=== PATIENT | male | born 1990 | race African-American/Black ===

== ENCOUNTER 2020-07-10 11:40 | Emergency (ER) | payer MEDICAID ==
[~2020-07-10] VITALS: Ht 180.3 cm; Wt 145.1 kg
[2020-07-10 11:47] VITALS: BP 162/101
[2020-07-10] MEDS ORDERED: Augmentin 875mg Tab ORAL ONE (12:45)
[2020-07-10] MEDS ORDERED: AUGMENTIN 875-1 EAC1 ORAL (12:45)
[2020-07-10] MEDS ORDERED: NORCO 5-325 TA1 EAC1 ORAL (12:45)
[2020-07-10 13:07] VITALS: BP 145/82
--- NOTE | 2020-07-12 14:13 | Emergency Room Report ---
History of Present Illness General Chief Complaint: Sore Throat Source: Patient Present Illness HPI Patient is a 29-year-old male who presents after increased sore throat. Reports having pain to the left ear as well as increased pain to the back of his throat. Denies any voice changes. Had previous history of peritonsillar abscess drainage in the past. Onset of symptoms approximately 4 days ago. Gradually worsening symptoms. Denies any vomiting or fever. Denies any cough. Allergies: Coded Allergies: No Known Allergies (Unverified , 07/10/20) COVID-19 Screening Contact w/high risk pt: No Experienced COVID-19 symptoms?: Yes COVID-19 Testing performed MACHINING DEPARTMENT SUPERVISOR: No Patient History Past Medical History: see triage record Reviewed Nursing Documentation: PMH: Agreed; PSxH: Agreed Nursing Documentation-PMH Past Medical History: No Stated History Hx Cardiac Problems: No Hx Hypertension: No Hx Pacemaker: No Hx Asthma: No Hx COPD: No Hx Diabetes: No Hx Cancer: No Hx Gastrointestinal Problems: No Hx Dialysis: No History Of Psychiatric Problem: No Hx Neurological Problems: No Hx Cerebrovascular Accident: No Hx Seizures: No Review of Systems All Other Systems: negative except mentioned in HPI Physical Exam Vital Signs Date Time Temp Pulse Resp B/P (MAP) Pulse Ox O2 Delivery O2 Flow Rate FiO2 07/10/20 11:47 99.0 80 16 162/101 98 Room Air General Appearance: well appearing, no apparent distress, alert, GCS 15 Head: normocephalic, atraumatic ENT: hearing grossly normal, normal voice, tonsillar swelling, other - Uvula midline with some slight fullness to the left side. Neck: full range of motion, supple Respiratory: no respiratory distress, speaking full sentences Cardiovascular #1: normal inspection Gastrointestinal: normal inspection, soft Musculoskeletal: no calf tenderness Neurologic: normal gait Psychiatric: mood/affect normal Skin: no rash Medical Decision Making Diagnostic Impression: Primary Impression: Tonsillitis ER Course Patient presented for sore throat. Differential diagnosis include was not limited to peritonsillar cellulitis, tonsillitis, streptococcal pharyngitis among others. Patient has a benign exam and does not appear to require any imaging or laboratory testing at this time. Patient does appear to have some fullness to the left side of his oropharynx. Does not have any evidence of uvular deviation or fluctuance at this time. Patient was given Decadron as well as Augmentin in the emergency department. Patient was noted to have some prior history of peritonsillar abscess drainage in the past. Patient does not have any evidence of definite abscess at this time however he was advised to have area rechecked in the next 1 to 2 days and that he may need drainage procedure if this worsens. Patient was advised to return sooner if worse. The patient is advised to follow up with primary care doctor in 1-2 days. Patient is advised to return if any worsening condition or if any changes in status that are concerning. This report is dictated with [employer] dependency director software which may occasionally lead to discrepancies related to use of this software. Last Vital Signs Date Time Temp Pulse Resp B/P (MAP) Pulse Ox O2 Delivery O2 Flow Rate FiO2 07/10/20 13:07 99.0 74 18 145/82 99 Room Air Status: improved Disposition: HOME, SELF-CARE Condition: Stable Referrals: [facility]ERR[facility] (PCP) Patient Instructions: Tonsillitis Additional Instructions: Follow up for recheck in 2 days. May need a drainage procedure if worse. Return if any concerns. Eran Thompson MD Jul 12, 2020 14:13
== END 2020-07-10 13:07 | disposition home or self-care (01) ==
LOC: EMR 12:21
DX: J03.90 Acute tonsillitis, unspecified (principal)
CPT/HCPCS: 96372; J1100; Z7502; 99283

== ENCOUNTER 2020-07-11 19:40 | Observation (INO) | payer MEDICAID ==
[~2020-07-11] VITALS: Ht 177.8 cm; Wt 133.4 kg
[~2020-07-11 19:40] MED LIST: AUGMENTIN 875-1 EAC1 ORAL; NORCO 5-325 TA1 EAC1 ORAL
--- NOTE | 2020-07-11 19:53 | NUR ---
ED Nurse Note: Walk-in patient with complaints of increased swelling in the throat at the left and anterior aspects. Patient is now unable to eat and has only been taking in room temperature water. Patient reports havingthis problem threee other times and needing an incision and drainage procedure to help with the healing process. Patient was seen yesterday and given antibiotics and pain medication but reports no relief with prescriptions. Will continue to monitor.
[2020-07-11 19:55] VITALS: BP 136/94
--- NOTE | 2020-07-11 20:16 | Emergency Room Report ---
History of Present Illness General Chief Complaint: Neck Pain Present Illness Allergies: Coded Allergies: No Known Allergies (Unverified , 07/10/20) COVID-19 Screening Contact w/high risk pt: No Experienced COVID-19 symptoms?: No COVID-19 Testing performed PLASTIC CNC MACHINE OPERATOR: No (Critical access hospital) Nursing Documentation-PMH Hx Cardiac Problems: No Hx Hypertension: No Hx Pacemaker: No Hx Asthma: No Hx COPD: No Hx Diabetes: No Hx Cancer: No Hx Gastrointestinal Problems: No Hx Dialysis: No Hx Neurological Problems: No Hx Cerebrovascular Accident: No Hx Seizures: No (Critical access hospital) Physical Exam Vital Signs Date Time Temp Pulse Resp B/P (MAP) Pulse Ox O2 Delivery O2 Flow Rate FiO2 07/11/20 19:43 97.7 76 18 136/94 (108) 97 Room Air (Critical access hospital) Procedures Additional Procedure Procedure Narrative Bedside aspiration of peritonsillar abscess: Site was anesthetized with topical Hurricaine spray and approximately 3 cc of 1 % lidocaine with epinephrine were injected into the side for local anesthetic. Patient held Yankauer suction for secretions. An 18-gauge needle with safety cap cut to 1 cm was inserted into the tonsillar pillar but unable to aspirate any purulent material after 3 attempts. No significant bleeding occurred. Patient tolerated the procedure well. There were no complications. Performed by me, Dr. Andrés Cornelius (Andrés Cornelius MD) Medical Decision Making Diagnostic Impression: Primary Impression: Peritonsillar abscess ER Course Assumed care of the patient from the previous provider at approximately 2300 hrs. Please refer to initial note for full history and physical exam. Briefly, briefly, 29-year-old male recent start amoxicillin for tonsillitis presents with peritonsillar abscess. This was confirmed by CT scan. Plan is for admission for IV antibiotics per previous provider. I attempted aspiration of the PLASTIC CNC MACHINE OPERATOR at bedside but was unsuccessful. Unable to aspirate any purulent material. No complications or significant bleeding occurred; patient tolerated procedure well. ENT unable to consult in the emergency department. Patient received IV antibiotics and IV fluids. Creatinine was slightly elevated. He states he is unable to eat or drink at home for the past few days. Will be admitted for further IV antibiotics and ENT evaluation as inpatient. Admitted to panel physician, Dr. Vallejo. Laboratory Tests Test 07/11/20 20:40 White Blood Count 12.2 K/UL (4.8-10.8) H Red Blood Count 5.25 M/UL (4.70-6.10) Hemoglobin 15.3 G/DL (14.2-18.0) Hematocrit 47.3 % (42.0-52.0) Mean Corpuscular Volume 90 FL (80-99) Mean Corpuscular Hemoglobin 29.2 PG (27.0-31.0) Mean Corpuscular Hemoglobin Concent 32.4 G/DL (32.0-36.0) Red Cell Distribution Width 11.7 % (11.6-14.8) Platelet Count 280 K/UL (150-450) Mean Platelet Volume 6.8 FL (6.5-10.1) Neutrophils (%) (Auto) 62.0 % (45.0-75.0) Lymphocytes (%) (Auto) 28.9 % (20.0-45.0) Monocytes (%) (Auto) 7.6 % (1.0-10.0) Eosinophils (%) (Auto) 0.3 % (0.0-3.0) Basophils (%) (Auto) 1.1 % (0.0-2.0) Sodium Level 142 MMOL/L (136-145) Potassium Level 3.0 MMOL/L (3.5-5.1) L Chloride Level 103 MMOL/L (98-107) Carbon Dioxide Level 31 MMOL/L (21-32) Anion Gap 8 mmol/L (5-15) Blood Urea Nitrogen 14 mg/dL (7-18) Creatinine 1.4 MG/DL (0.55-1.30) H Estimated Glomerular Filtration Rate > 60 mL/min (>60) Glucose Level 93 MG/DL (74-106) Calcium Level 9.3 MG/DL (8.5-10.1) Total Bilirubin 0.8 MG/DL (0.2-1.0) Aspartate Amino Transferase (AST) 18 U/L (15-37) Alanine Aminotransferase (ALT) 28 U/L (12-78) Alkaline Phosphatase 71 U/L (46-116) Total Protein 9.4 G/DL (6.4-8.2) H Albumin 4.1 G/DL (3.4-5.0) Globulin 5.3 g/dL Albumin/Globulin Ratio 0.8 (1.0-2.7) L (Andrés Cornelius MD) CT/MRI/US Diagnostic Results CT/MRI/US Diagnostic Results : Impression IMPRESSION: Left peritonsillar abscess measuring 1.5 x 2.0 x 2.6 cm. Bilateral lymphadenopathy as described. Dictated By: Kristi Langford M.D. Electronically Signed By: Kristi Langford M.D. Signed Date/Time 07/11/202229 CC: Kaela Rodrigez DO (Andrés Cornelius MD) Last Vital Signs Date Time Temp Pulse Resp B/P (MAP) Pulse Ox O2 Delivery O2 Flow Rate FiO2 07/11/20 19:55 97.7 86 18 136/94 97 Room Air (Kaela Rodrigez DO) Disposition: ADMITTED INPATIENT Condition: Serious Kaela Rodrigez DO Jul 11, 2020 20:16 Andrés Cornelius MD Jul 12, 2020 03:25
[2020-07-11] MEDS ORDERED: Omnipaque-300 100ml vial INJ ONE (20:30)
[2020-07-11] MEDS ORDERED: dexAMETHasone 10mg/ml Inj IV ONE (20:30)
[2020-07-11] MEDS ORDERED: Clindamycin 900mg 50 ML IV ONE (20:30)
[2020-07-11 20:56] LABS: BASOPHILS % (AUTO) 1.1 % (0.0-2.0); EOSINOPHILS % (AUTO) 0.3 % (0.0-3.0); HEMATOCRIT 47.3 % (42.0-52.0); HEMOGLOBIN 15.3 G/DL (14.2-18.0); LYMPHOCYTES % (AUTO) 28.9 % (20.0-45.0); MEAN CORPUSCULAR VOLUME 90 FL (80-99); MONOCYTES % (AUTO) 7.6 % (1.0-10.0); PLATELET COUNT 280 K/UL (150-450); RED BLOOD COUNT 5.25 M/UL (4.70-6.10); RED CELL DISTRIBUTION WIDTH 11.7 % (11.6-14.8); WHITE BLOOD COUNT 12.2 K/UL (4.8-10.8)
[2020-07-11 21:06] LABS: ANION GAP 8 mmol/L (5-15); BLOOD UREA NITROGEN 14 mg/dL (7-18); CALCIUM 9.3 MG/DL (8.5-10.1); CARBON DIOXIDE 31 MMOL/L (21-32); CHLORIDE 103 MMOL/L (98-107); CREATININE 1.4 MG/DL (0.55-1.30); SODIUM 142 MMOL/L (136-145)
[2020-07-11 21:11] LABS: ALANINE AMINOTRANSFERASE 28 U/L (12-78); ALBUMIN 4.1 G/DL (3.4-5.0); ALBUMIN/GLOBULIN RATIO 0.8 (1.0-2.7); ALKALINE PHOSPHATASE 71 U/L (46-116); ASPARTATE AMINO TRANSFERASE 18 U/L (15-37); BILIRUBIN,TOTAL 0.8 MG/DL (0.2-1.0)
--- NOTE | 2020-07-11 21:26 | NUR ---
ED Nurse Note: Patient departed from department to radiology for CT accompanied by assistant professor of radiology.
--- NOTE | 2020-07-11 21:36 | NUR ---
ED Nurse Note: Patient returned from CT accompanied by information systems technician, without incident.
--- NOTE | 2020-07-11 22:30 | NUR ---
ED Nurse Note: Patient re-roomed to bed equipped room.
--- NOTE | 2020-07-11 22:31 | Diagnostic Imaging Report ---
EXAM: CT Neck With Intravenous Contrast CLINICAL HISTORY: ABSCESS TECHNIQUE: Axial computed tomography images of the neck with intravenous contrast. CTDI is 21.8 mGy and DLP is 674.6 mGy-cm. One or more of the following dose reduction techniques were used: automated exposure control, adjustment of the mA and/or kV according to patient size, use of iterative reconstruction technique. COMPARISON: None. FINDINGS: Nasopharynx: There is obscuration of the left fossa of Rosenmuller with fluid density most likely compatible with nonspecific inflammation. Oropharynx: There is enlargement of the left stone cyst with mass- effect or midline. Hypoattenuated structure with peripheral rim of enhancement demonstrated within the left peritonsillar region measuring 1. 5 cm in AP dimension by 2.0 cm in transverse dimension by 2.6 cm in craniocaudal dimension. This has a lobulated shape and is compatible with an abscess. There is mild mass-effect over the left parapharyngeal space. There is shift of midline structures including soft palate and uvula to the right. Hypopharynx: Unremarkable. Larynx: Unremarkable. Normal epiglottis. Trachea: Unremarkable. Retropharyngeal space: Unremarkable. Submandibular/parotid glands: Unremarkable. Glands are normal in size. Thyroid: Unremarkable. No enlarged or calcified nodules. Bones/joints: No acute fracture. Soft tissues: Unremarkable. Vasculature: No acute findings. Lymph nodes: There is bilateral lymphadenopathy through the anterior and posterior cervical chain, more severe on the left compared to the right, largest lymph nodes seen along the carotid chain and measuring 2.6 x 1.5 cm. There is bilateral submandibular borderline lymphadenopathy, more significant on the left compared to the right and largest lymph node seen on the left measuring 1.1 x 0.7 cm. Lung apices: Unremarkable as visualized. IMPRESSION: Left peritonsillar abscess measuring 1.5 x 2.0 x 2.6 cm. Bilateral lymphadenopathy as described.
--- NOTE | 2020-07-11 23:10 | NUR ---
HAND-OFF: Report given to Laney GOMEZ.
--- NOTE | 2020-07-11 23:15 | NUR ---
ED Nurse Note: Recieved report to resume care, MD currently at bedside speaking with pt about care options, decided that MD will attempt to drain abcess before deciding to admit, will prepare for procedure, pt here for periorbital abcess, currently has pain to area of left mouth at 7/10 and sharp.
[2020-07-11] MEDS ORDERED: Lidocaine 1% Plain 30 ml INJ ONE (23:30)
[2020-07-11] MEDS ORDERED: Morphine Sulfate 4mg/ml Inj (IV USE ONLY) IVP ONE (23:30)
[2020-07-11] MEDS ORDERED: Hurricaine 20% Spray ORO ONE (23:30)
[2020-07-11] MEDS ORDERED: Lidocaine 1% 10mg/ml/EPI 0.01mg/ml 30ml INJ ONE (23:41)
--- NOTE | 2020-07-12 00:05 | NUR ---
ED Nurse Note: I and D of abcess un-successful, pt to now be admitted, has patent IV line, no other discomforts or conditions, will continue to closely monitor and prepare for admisison or transfer.
[2020-07-12 00:30] VITALS: BP 141/90
[2020-07-12] MEDS ORDERED: Ketorolac 30mg Inj IV ONE (01:15)
--- NOTE | 2020-07-12 01:20 | NUR ---
ED Nurse Note: Pt has room for admission, report called to floor nurse, pt medicated for pain at 6, IV site patent, denies any other discomforts or complaints, belongings list completed, pt being taken to floor bed via gurney with er-tech, nad noted during pt transport to floor.
[2020-07-12] MEDS ORDERED: Morphine Sulfate 4mg/ml Inj (IV USE ONLY) IVP ONE (01:30)
--- NOTE | 2020-07-12 01:46 | NUR ---
NURSE NOTES: received report from carla buckner. received patient per hussain accompanied by ER staff. patient is a&o x4. ambulatory. on room air. no sob. denies any pain at the moment. iv line on the left ac, saline lock. per dudley, they tried to do I &D in the ED it wasn't successful, hence got admitted". all belongings on the bedside with cheng of $68 and prefers to keep the money with the patient. oriented to room set up. placed urinal on the bedside. bed locked and in lowest position. call light and light button within easy reach.
--- NOTE | 2020-07-12 02:20 | NUR ---
NURSE NOTES: paged dr. kaye for admission orders. awaiting for call back. charge nurse made aware
[2020-07-12] MEDS ORDERED: Morphine Sulfate 2mg/ml Inj(IV/IM USE ONLY) IVP PRN ×2 (03:45→06:30)
[2020-07-12] MEDS ORDERED: Morphine Sulfate 4mg/ml Inj (IV USE ONLY) IVP PRN ×2 (03:45→06:30)
[2020-07-12 04:00] VITALS: BP 135/82
--- NOTE | 2020-07-12 04:40 | NUR ---
NURSE NOTES: Received breach order frm dr. pagan. charge nurse made aware.
[2020-07-12] MEDS ORDERED: Clindamycin 600mg 50 ML IVPB SCH (06:00)
[2020-07-12] MEDS ORDERED: Acetaminophen 650mg/20.3ml ORAL PRN (06:30)
--- NOTE | 2020-07-12 06:38 | NUR ---
NURSE NOTES: Received admission orders from dr. kaye.noted and carried out.charge nurse made aware
--- NOTE | 2020-07-12 07:20 | NUR ---
NURSE NOTES: Report received from Hanny GOMEZ, rounds made. Patient sleeping, awakens easily. Denies SOB, pain, NV. Left tonsil area with redness, no pus or drainage noted. IVF infusing to LAC, site asymptomatic. Call light in reach, bed in lowest position, will continue to monitor.
--- NOTE | 2020-07-12 07:33 | NUR ---
NURSE HAND-OFF: Important Events on Shift: ADMISSION; PAIN MNGT Patient Status:STABLE Diet: CLEAR LIQUID DIET Pending Orders: Pending Results/Labs: LABS TOMORROW AM Pending MD notification: Latest Vital Signs: Temperature 98.2 , Pulse 76 , B/P 135 /82 , Respiratory Rate 20 , O2 SAT 98 , Room Air, O2 Flow Rate . Vital Sign Comment: Latest Desir Fall Score: 20 Fall Risk: Low Risk Safety Measures: Call light Within Reach, Bed Alarm Zone 1, Side Rails Side Rails x2, Bed position Low and Locked. Fall Precautions: Patient Fall Education Report given to JASON DESOUZA. Addendum: 07/12/20 at 0740 by Aislinn Graves RN F/U WITH THE NEW ORDER OF IV FLUIDS.
[2020-07-12 08:00] VITALS: BP 152/86
[2020-07-12] MEDS: D5 1/2NS w/KCl 20mEq 1,000 ML IV SCH ×2 (09:10→17:00)
--- NOTE | 2020-07-12 09:14 | NUR ---
NURSE NOTES: Dr. Vallejo notified of K3.0 level, orders received for KCL 40 meq POx1, will administer as ordered. Addendum: 07/12/20 at 2036 by Kaitlynn Bullock RN Administered as ordered, dissolved and given with applesauce due to throat/tonsil redness.
--- NOTE | 2020-07-12 09:20 | NUR ---
NURSE NOTES: Bilateral SCDs applied, explained order and indication to patient, verbalized understanding.
[2020-07-12 12:00] VITALS: BP 127/86
--- NOTE | 2020-07-12 13:23 | Consultation ---
History of Present Illness General Date patient seen: Jul 12, 2020 Reason for Hospitalization: Neck Pain Present Illness HPI This is a very pleasant 29-year-old male otherwise healthy who presents [facility] for evaluation of neck pain. Patient states he was here recently and in the history is had similar symptoms and was recently diagnosed with tonsillitis. Pain was severe and he cannot eat tolerate food and felt as if his mouth was obstructed. Was admitted further care and management. Started on IV antibiotics given pain control. CT as below. Surgery called to eval and assist with care. Patient seen, patient evaluated, chart reviewed Allergies: Coded Allergies: No Known Allergies (Unverified , 07/10/20) COVID-19 Screening Contact w/high risk pt: No Experienced COVID-19 symptoms?: No Medication History Discontinued Medications Amoxicillin/Potassium Clav 875-125* (Augmentin 875-125 Tablet*), 1 TAB ORAL TWICE A DAY Discontinued Reason: MD discontinued med Hydrocodone Bit/Acetaminophen 5-325* ([place] 5-325 Tablet*), 1 TAB ORAL Q4H PRN for FOR PAIN Discontinued Reason: MD discontinued med Patient History History Provided By: Patient Healthcare decision maker Resuscitation status Advanced Directive on File Past Medical/Surgical History Past Medical/Surgical History: (1) Peritonsillar abscess (2) Tonsillitis Review of Systems Review of Symptoms General ROS: no weight loss or fever Psychological ROS: no depression or mood changes, no memory loss Ophthalmic ROS: no visual changes or eye irritation ENT ROS: no nasal congestion, hearing loss, dizziness Allergy and Immunology ROS: no allergic symptoms or urticaria Hematological and Lymphatic ROS: no swollen glands, unusual bleeding or bruising Endocrine ROS: no polyuria, polydipsia, weight changes, temperature intolerance Respiratory ROS: no cough, shortness of breath, or wheezing Cardiovascular ROS: no chest pain or dyspnea on exertion Gastrointestinal ROS: denies abdominal pain, bright red blood in stool. Musculoskeletal ROS: no myalgias or arthralgias Neurological ROS: no TIA or stroke symptoms Dermatological ROS: no new or changing skin lesions, rashes or pruritis Physical Exam Physical Exam General appearance: alert, cooperative, no distress, appears stated age Head: Normocephalic, without obvious abnormality, atraumatic Eyes: conjunctivae/corneas clear. PERRL, EOM's intact. Fundi benign Throat: Lips, mucosa, and tongue normal. Teeth and gums normal Neck: supple, symmetrical, trachea midline, no adenopathy, thyroid: not enlarged, symmetric, no tenderness/mass/nodules, no carotid bruit and no JVD Lungs: clear to auscultation bilaterally Heart: regular rate and rhythm, S1, S2 normal, no murmur, click, rub or gallop Abdomen: soft, non-tender. Bowel sounds normal. No masses, no organomegaly Extremities: extremities normal, atraumatic, no cyanosis or edema Pulses: 2+ and symmetric Skin: Skin color, texture, turgor normal. No rashes or lesions Neurologic: Grossly normal Last 24 Hour Vital Signs Date Time Temp Pulse Resp B/P (MAP) Pulse Ox O2 Delivery O2 Flow Rate FiO2 07/12/20 08:00 98.8 54 20 152/86 (108) 99 07/12/20 04:00 98.2 76 20 135/82 (99) 98 07/12/20 02:53 Room Air 07/12/20 01:35 98.6 74 18 141/90 97 Room Air 07/12/20 00:30 98.6 74 18 141/90 97 Room Air 07/12/20 00:09 98.6 07/12/20 00:09 98.6 07/11/20 19:55 97.7 86 18 136/94 97 Room Air 07/11/20 19:43 97.7 76 18 136/94 (108) 97 Room Air Intake and Output 07/11/20 07/12/20 19:00 07:00 Intake Total 150 ml Balance 150 ml Intake Oral 150 ml # Voids 2 Laboratory Tests Test 07/11/20 20:40 White Blood Count 12.2 K/UL (4.8-10.8) H Red Blood Count 5.25 M/UL (4.70-6.10) Hemoglobin 15.3 G/DL (14.2-18.0) Hematocrit 47.3 % (42.0-52.0) Mean Corpuscular Volume 90 FL (80-99) Mean Corpuscular Hemoglobin 29.2 PG (27.0-31.0) Mean Corpuscular Hemoglobin Concent 32.4 G/DL (32.0-36.0) Red Cell Distribution Width 11.7 % (11.6-14.8) Platelet Count 280 K/UL (150-450) Mean Platelet Volume 6.8 FL (6.5-10.1) Neutrophils (%) (Auto) 62.0 % (45.0-75.0) Lymphocytes (%) (Auto) 28.9 % (20.0-45.0) Monocytes (%) (Auto) 7.6 % (1.0-10.0) Eosinophils (%) (Auto) 0.3 % (0.0-3.0) Basophils (%) (Auto) 1.1 % (0.0-2.0) Sodium Level 142 MMOL/L (136-145) Potassium Level 3.0 MMOL/L (3.5-5.1) L Chloride Level 103 MMOL/L (98-107) Carbon Dioxide Level 31 MMOL/L (21-32) Anion Gap 8 mmol/L (5-15) Blood Urea Nitrogen 14 mg/dL (7-18) Creatinine 1.4 MG/DL (0.55-1.30) H Estimat Glomerular Filtration Rate > 60 mL/min (>60) Glucose Level 93 MG/DL (74-106) Calcium Level 9.3 MG/DL (8.5-10.1) Total Bilirubin 0.8 MG/DL (0.2-1.0) Aspartate Amino Transf (AST/SGOT) 18 U/L (15-37) Alanine Aminotransferase (ALT/SGPT) 28 U/L (12-78) Alkaline Phosphatase 71 U/L (46-116) Total Protein 9.4 G/DL (6.4-8.2) H Albumin 4.1 G/DL (3.4-5.0) Globulin 5.3 g/dL Albumin/Globulin Ratio 0.8 (1.0-2.7) L Height (Feet): 5 Height (Inches): 10.00 Weight (Pounds): 294 Medications Current Medications Medications (Trade) Dose Ordered Sig/Paula Route PRN Reason Start Time Stop Time Status Last Admin Dose Admin Acetaminophen (Tylenol) 650 mg Q6H PRN ORAL Mild Pain (1-3)/temp>100.5 07/12/20 06:30 08/11/20 06:29 Dextrose/ Electrolytes 1,000 ml @ 100 mls/hr Q10H IV 07/12/20 07:00 08/11/20 06:59 07/12/20 09:10 Morphine Sulfate (Morphine Sulfate) 2 mg Q4H PRN IVP Moderate Pain (Pain Scale 4-6) 07/12/20 06:30 07/19/20 06:29 Morphine Sulfate (Morphine Sulfate) 4 mg Q4H PRN IVP Severe Pain (Pain Scale 7-10) 07/12/20 06:30 07/19/20 06:29 Ondansetron HCl (Zofran) 4 mg Q4H PRN IVP Nausea & Vomiting 07/12/20 06:30 08/11/20 06:29 Assessment/Plan Problem List: (1) Peritonsillar abscess Assessment & Plan: Nasopharynx: There is obscuration of the left fossa of Rosenmuller with fluid density most likely compatible with nonspecific inflammation. Oropharynx: There is enlargement of the left stone cyst with mass- effect or midline. Hypoattenuated structure with peripheral rim of enhancement demonstrated within the left peritonsillar region measuring 1. 5 cm in AP dimension by 2.0 cm in transverse dimension by 2.6 cm in craniocaudal dimension. This has a lobulated shape and is compatible with an abscess. There is mild mass-effect over the left parapharyngeal space. There is shift of midline structures including soft palate and uvula to the right. Hypopharynx: Unremarkable. Larynx: Unremarkable. Normal epiglottis. Trachea: Unremarkable. Retropharyngeal space: Unremarkable. Submandibular/parotid glands: Unremarkable. Glands are normal in size. Thyroid: Unremarkable. No enlarged or calcified nodules. Bones/joints: No acute fracture. Soft tissues: Unremarkable. Vasculature: No acute findings. Lymph nodes: There is bilateral lymphadenopathy through the anterior and posterior cervical chain, more severe on the left compared to the right, largest lymph nodes seen along the carotid chain and measuring 2.6 x 1.5 cm. There is bilateral submandibular borderline lymphadenopathy, more significant on the left compared to the right and largest lymph node seen on the left measuring 1.1 x 0.7 cm. Lung apices: Unremarkable as visualized. IMPRESSION: Left peritonsillar abscess measuring 1.5 x 2.0 x 2.6 cm. Bilateral lymphadenopathy as described. ICD Codes: J36 - Peritonsillar abscess SNOMED: [id number] (2) Tonsillitis Assessment & Plan: 29-year-old male with tonsillitis and small peritonsillar abscess. Not amenable to drainage at this time and significantly improved since admission and IV antibiotics. History of similar events in the past resolved. Has not seek outpatient care just yet. Okay for liquid diet. Okay for antibiotics. Consider transition to treatment with oral antibiotics for discharge planning. Outpatient ENT follow-up. Considerations for tonsillectomy. No acute surgical intervention at this time. Thank you for allowing participation's care will follow with recommendations ICD Codes: J03.90 - Acute tonsillitis, unspecified SNOMED: [id number] Clement Carson Jul 12, 2020 13:23
--- NOTE | 2020-07-12 14:04 | Consultation ---
History of Present Illness General Date patient seen: Jul 12, 2020 Chief Complaint: Neck Pain Present Illness HPI 29 y/o M with hx of presented to ED on 07/11/20 with neck pain, unable to eat or drink. Was recently diagnosed with tonsillitis. Was found to have peritonsillar abscess and underwent attempted bedside aspiration on the ED. Allergies: Coded Allergies: No Known Allergies (Unverified , 07/10/20) Medication History Scheduled Clindamycin Hcl (Clindamycin Hcl), 300 MG ORAL FOUR TIMES A DAY Discontinued Medications Amoxicillin/Potassium Clav 875-125* (Augmentin 875-125 Tablet*), 1 TAB ORAL TWICE A DAY Discontinued Reason: MD discontinued med Hydrocodone Bit/Acetaminophen 5-325* ([place] 5-325 Tablet*), 1 TAB ORAL Q4H PRN for FOR PAIN Discontinued Reason: MD discontinued med Patient History Healthcare decision maker Resuscitation status Advanced Directive on File Patient History Narrative Pmhx: as above Shx: reviewed Fhx: non contributory Review of Systems All Other Systems: negative except mentioned in HPI Physical Exam Physical Exam Narrative General appearance: alert, cooperative, no distress, appears stated age Head: Normocephalic, without obvious abnormality, atraumatic Eyes: conjunctivae/corneas clear. PERRL, EOM's intact. Fundi benign Throat: Lips, mucosa, and tongue normal. Teeth and gums normal Neck: supple, symmetrical, trachea midline, no adenopathy, thyroid: not enlarged, symmetric, no tenderness/mass/nodules, no carotid bruit and no JVD Lungs: clear to auscultation bilaterally Heart: regular rate and rhythm, S1, S2 normal, no murmur, click, rub or gallop Abdomen: soft, non-tender. Bowel sounds normal. No masses, no organomegaly Extremities: extremities normal, atraumatic, no cyanosis or edema Skin: Skin color, texture, turgor normal. No rashes or lesions Neurologic: Grossly normal Last 24 Hour Vital Signs Date Time Temp Pulse Resp B/P (MAP) Pulse Ox O2 Delivery O2 Flow Rate FiO2 07/12/20 12:00 98.8 67 20 127/86 (100) 99 07/12/20 08:00 98.8 54 20 152/86 (108) 99 07/12/20 04:00 98.2 76 20 135/82 (99) 98 07/12/20 02:53 Room Air 07/12/20 01:35 98.6 74 18 141/90 97 Room Air 07/12/20 00:30 98.6 74 18 141/90 97 Room Air 07/12/20 00:09 98.6 07/12/20 00:09 98.6 07/11/20 19:55 97.7 86 18 136/94 97 Room Air 07/11/20 19:43 97.7 76 18 136/94 (108) 97 Room Air Intake and Output 07/11/20 07/12/20 19:00 07:00 Intake Total 150 ml Balance 150 ml Intake Oral 150 ml # Voids 2 Laboratory Tests Test 07/11/20 20:40 White Blood Count 12.2 K/UL (4.8-10.8) H Red Blood Count 5.25 M/UL (4.70-6.10) Hemoglobin 15.3 G/DL (14.2-18.0) Hematocrit 47.3 % (42.0-52.0) Mean Corpuscular Volume 90 FL (80-99) Mean Corpuscular Hemoglobin 29.2 PG (27.0-31.0) Mean Corpuscular Hemoglobin Concent 32.4 G/DL (32.0-36.0) Red Cell Distribution Width 11.7 % (11.6-14.8) Platelet Count 280 K/UL (150-450) Mean Platelet Volume 6.8 FL (6.5-10.1) Neutrophils (%) (Auto) 62.0 % (45.0-75.0) Lymphocytes (%) (Auto) 28.9 % (20.0-45.0) Monocytes (%) (Auto) 7.6 % (1.0-10.0) Eosinophils (%) (Auto) 0.3 % (0.0-3.0) Basophils (%) (Auto) 1.1 % (0.0-2.0) Sodium Level 142 MMOL/L (136-145) Potassium Level 3.0 MMOL/L (3.5-5.1) L Chloride Level 103 MMOL/L (98-107) Carbon Dioxide Level 31 MMOL/L (21-32) Anion Gap 8 mmol/L (5-15) Blood Urea Nitrogen 14 mg/dL (7-18) Creatinine 1.4 MG/DL (0.55-1.30) H Estimat Glomerular Filtration Rate > 60 mL/min (>60) Glucose Level 93 MG/DL (74-106) Calcium Level 9.3 MG/DL (8.5-10.1) Total Bilirubin 0.8 MG/DL (0.2-1.0) Aspartate Amino Transf (AST/SGOT) 18 U/L (15-37) Alanine Aminotransferase (ALT/SGPT) 28 U/L (12-78) Alkaline Phosphatase 71 U/L (46-116) Total Protein 9.4 G/DL (6.4-8.2) H Albumin 4.1 G/DL (3.4-5.0) Globulin 5.3 g/dL Albumin/Globulin Ratio 0.8 (1.0-2.7) L Height (Feet): 5 Height (Inches): 10.00 Weight (Pounds): 294 Medications Current Medications Medications (Trade) Dose Ordered Sig/Paula Route PRN Reason Start Time Stop Time Status Last Admin Dose Admin Acetaminophen (Tylenol) 650 mg Q6H PRN ORAL Mild Pain (1-3)/temp>100.5 07/12/20 06:30 08/11/20 06:29 Dextrose/ Electrolytes 1,000 ml @ 100 mls/hr Q10H IV 07/12/20 07:00 08/11/20 06:59 07/12/20 09:10 Morphine Sulfate (Morphine Sulfate) 2 mg Q4H PRN IVP Moderate Pain (Pain Scale 4-6) 07/12/20 06:30 07/19/20 06:29 Morphine Sulfate (Morphine Sulfate) 4 mg Q4H PRN IVP Severe Pain (Pain Scale 7-10) 07/12/20 06:30 07/19/20 06:29 Ondansetron HCl (Zofran) 4 mg Q4H PRN IVP Nausea & Vomiting 07/12/20 06:30 08/11/20 06:29 Assessment/Plan Assessment/Plan: Abx: CLindamycin Assessment: Tonsillitis c/w peritonsillar abscess; much improved- currently with no pain, tolerating liquids, swelling had decreased -07/11 SP Attempted Bedside aspiration or peritonsillar abscess (in the ED): An 18-gauge needle with safety cap cut to 1 cm was inserted into the tonsillar pillar but unable to aspirate any purulent material after 3 attempts. No significant bleeding occurred. -07/11 CT neck w/: Left peritonsillar abscess measuring 1.5 x 2.0 x 2.6 cm. Bilateral lymphadenopathy as described. Afebrile Mild leukocytosis ?RAMON ( Cr 1.4) Plan: - IV unasyn #1 (abx d #2) --Patient spoke with Dr Vallejo and noted that is feeling much better, with no pain, swelling down and able to tolerate liquids and feels good enough to be sent home. Patient will be discharged home on PO Clindamycin for 7 more days -f/u cx -Monitor CBC/CMP, temperatures Thank you for this consultation. Will continue to follow along with you. Discussed with Kisha Morrison M.D. Jul 12, 2020 14:04
--- NOTE | 2020-07-12 14:13 | NUR ---
CASE MANAGEMENT: INITIAL REVIEW 29YR OLD MALE FROM HOME CC:NECK PAIN; INCREASING SWELLING TO THROAT; AND UNABLE TO EAT SI:PERITONITIS ABSCESS / DEHYDRATION 97.7 76 18 136/94 97% ON RA WBC 12.2 K+ 3.0 CREAT 1.4 IS:IV CLINDAMYCIN X1 IV DECADRON X1 IVF NS BOLUS X2 K-DUR PO X1 IV MORPHINE SULFATE X1 CT NECK -Left peritonsillar abscess measuring 1.5 x 2.0 x 2.6 cm. Bilateral lymphadenopathy as described. \: 3E MED SURG UNIT DCP: HOME WHEN STABLE PLAN: SURGICAL CONSULT CASE MANAGEMENT: REVIEW 07/12/20 SI:PERITONITIS ABSCESS / DEHYDRATION 98.8 54 20 152/86 99% ON RA HIV SCREEN IS:IV D5@100ML/HR K-DUR PO X1 IV CLINDAMYCIN TID IV NS @125ML/HR IV MORPHINE SULFATE X1 \: 3E MED SURG UNIT DCP: HOME WHEN STABLE PLAN: SURGICAL CONSULT CONSULT ID
--- NOTE | 2020-07-12 14:36 | NUR ---
*-* INSURANCE *-* UPDATED CLINICALS AND REVIEWS HAVE BEEN FAXED TO: [employer] [facility] AUTH#[id number] SEND CLINICALS TO [facility] P:[phone] F:[phone]
[2020-07-12] MEDS ORDERED: Ampicillin/Sulbactam Sod 3 GM in NS 110 ML IVPB SCH (15:00)
[2020-07-12] MEDS ORDERED: CLINDAMYCIN HC300 MG ORAL (15:18)
--- NOTE | 2020-07-12 15:19 | Discharge Instructions ---
Discharge Instructions For Congestive Heart Failure Reminder F/U with Fabian Vallejo MD in 1 week. Fabian Vallejo MD Jul 12, 2020 15:19
--- NOTE | 2020-07-12 15:53 | NUR ---
NURSE NOTES: Patient notified of new order for Strep A, verbalized understanding. Strep A culture/swab performed to left tonsil/back of throat area as ordered, done at 1520, sent to lab at this time.
[2020-07-12 16:00] VITALS: BP 161/89
--- NOTE | 2020-07-12 16:35 | NUR ---
NURSE NOTES: Dr. Vallejo notified of BP 161/89 and reviewed BP readings from earlier in shift, no further orders.
--- NOTE | 2020-07-12 16:45 | NUR ---
NURSE NOTES: Faxed antibiotic prescription to [facility], confirmed fax received, and when patient will be discharged.
--- NOTE | 2020-07-12 17:47 | History & Physical ---
History and Physical History & Physicial job # [id number] Fabian Vallejo MD Jul 12, 2020 17:47
--- NOTE | 2020-07-12 18:57 | NUR ---
NURSE NOTES: Discharge instructions reviewed with patient and girlfriend, verbalized understanding. All belongings, discharge instructions and Clindamycin antibiotic given to patient. LAC heplock discontinued, no active bleeding. Patient ambulated down to [facility] with Daniel ALVARENGA, in stable condition. Discharged home at 1857.
[2020-07-12] MEDS ORDERED: NS 500ML ONE (18:59)
[2020-07-12] MEDS ORDERED: Tubing IV Secondary IV ONE (18:59)
--- NOTE | 2020-07-12 19:15 | History and Physical Report ---
DATE OF ADMISSION: 07/11/2020 CHIEF COMPLAINT: Left-sided facial pain, difficulty swallowing. HISTORY OF PRESENT ILLNESS: This is a 29-year-old gentleman with past medical history significant for tonsillitis as well as peritonsillar abscess. This is his third time tonsillar abscess, mostly in the left side, difficulty swallowing. He presented complaining about left-sided neck pain and difficulty swallowing. Similar episode for him with tonsillitis and tonsillar abscess in the past, unable to tolerate oral intake. The patient had presented to the hospital earlier, I had started him on Augmentin, third day today and stated that his symptoms have not improved and subsequently decided come back to the hospital. Shortly after initial evaluation in the emergency department, the patient was admitted to the hospital with left-sided peritonsillar abscess. PAST MEDICAL AND SURGICAL HISTORY: As above, history of tonsillitis as well as peritonsillar abscess. MEDICATIONS AT HOME: Augmentin 875 mg twice a day and hydrocodone one tablet every four hours as needed for pain. ALLERGIES: No known drug allergies. SOCIAL HISTORY: Denies any smoking, alcohol, or drugs. FAMILY HISTORY: Noncontributory except father has a history of hypertension and diabetes, mother with history of hypertension. REVIEW OF SYSTEMS: Mostly as above. Denies any dysuria, frequency, or hematuria. Denies any hemoptysis or hematochezia. Denies any bright red blood per rectum. PHYSICAL EXAMINATION: VITAL SIGNS: On admission, temperature 97.7, pulse of 78, respirations 18, and blood pressure 136/94. GENERAL: The patient is awake and responsive, in no acute distress. HEAD AND NECK: Pupils are equal and reactive to light. Extraocular movements are intact. Left-sided tonsil mild erythema. The patient has an enlarged adenoid. Neck was supple. No JVD. LUNGS: Clear. No wheezing or rales. HEART: S1, S2. Regular rhythm. No gallops. ABDOMEN: Soft, nondistended, and nontender. Positive bowel sounds, morbid obesity. EXTREMITIES: No cyanosis, clubbing, or edema. NEUROLOGIC: Cranial nerves II through XII grossly intact. Motor is 5/5 in all extremities. Gait is intact. RECTAL/GENITOURINARY: Refused and deferred. PSYCHIATRIC: Mood and affect is intact. LABORATORY DATA: On admission, WBC of 12, hemoglobin of 15, hematocrit of 47, platelets 280,000. Sodium 142, potassium 3.0, chloride 103, bicarb 31, BUN 14, creatinine 1.4. Glucose is 93. Alkaline phosphatase was 71. The patient had a CT of the neck, which confirmed left-sided peritonsillar abscess, measured at 1.5 x 2.0 x 2.6 cm, bilateral lymphadenopathy is noted. ASSESSMENT: Recurrent tonsillitis with the left-sided peritonsillar abscess. PLAN: Start the patient on clindamycin. The patient stated that he is feeling much better. He is able to tolerate oral intake without any difficulty swallowing. He stated that his symptoms has been completely resolved and he wants to go home. Discussed with the patient with regard to the finding. I advised the patient to follow up in my office next Wednesday in order to go over his cultures. The patient at this time is eager to go home. We will consider discharging the patient home on clindamycin to be followed in my office next Wednesday, two days from now in order to follow up with the cultures as well as his status. He agreed with us and he said that he will follow up in my office on Wednesday. Fabian Vallejo M.D. DR: CHITO JOB#: [id number] CC:
--- NOTE | 2020-07-14 11:57 | Discharge Summary ---
Discharge Summary Discharge Summary _ DATE OF ADMISSION: 07/11/2020 DATE OF DISCHARGE: 07/12/2020 DISCHARGED BY: Dr. Fabian Vallejo CONSULTANTS: Dr. Kisha Carson BRIEF HOSPITAL COURSE: Patient is a 29-year-old -[place] gentleman with past medical history significant for tonsillitis as well as peritonsillar abscess. This is the third time he had tonsillar abscess, mostly in the left side, and has difficulty swallowing. He presented to ED complaining of left-sided neck pain and difficulty swallowing. He had similar episodes with tonsillitis and tonsillar abscess in the past, he was unable to tolerate oral intake. He was already started on Augmentin as outpatient, and stated symptoms has not improved. Patient decided to come back to the hospital for evaluation. Upon evaluation at ED, blood work showed WBC elevated to 12. Hemoglobin and hematocrit were stable. CMP showed potassium level at 3.0. Creatinine 1.4. Neck CT with contrast showed left peritonsillar abscess measuring 1.5 x 2.0 x 2.6 cm. Attempted bedside aspiration was unsuccessful after 3 attempts. He was given IV hydration and was started on IV antibiotics. He was then admitted for evaluation of peritonsillar abscess. He was admitted to medical floor under observation. Infectious diseases specialist and general surgeon were consulted. Patient was started on IV Unasyn. Patient had rapid improvement in his symptoms. Patient stated he was feeling much better and was able to tolerate oral intake without any difficulty swallowing. Symptoms were resolved and patient wanted to go home. Patient was cleared to be discharged home to continue p.o. clindamycin x7 more days. To follow-up next week as outpatient. FINAL DIAGNOSES: Recurrent tonsillitis with left-sided peritonsillar abscess DISPOSITION: Patient was discharged home. DISCHARGE MEDICATIONS: Refer to Discharge Medication List. DISCHARGE INSTRUCTIONS: Follow-up on July 15, 2020. I have been assigned to complete a discharge summary on this account, I was not involved with the patient's management.--ISMAEL Temple Jacqueline Robles NP Jul 14, 2020 11:57
== END 2020-07-12 19:00 | disposition home or self-care (01) ==
LOC: EMR 20:19 → 3E 23:23 → INTOOBSV 23:23 → EDBEDREQ 07-12 00:44
DX: J03.91 Acute recurrent tonsillitis, unspecified (principal); M54.2 Cervicalgia; R59.1 Generalized enlarged lymph nodes
CPT/HCPCS: 36415; 42999; 70491; 80053; 85025; 96361; 96365; 96375; 96376; J0295; J2001; J2270; J7030; J7040; Q9967; S0077; Z7502; Z7514; 99285; G0378; J8499

== ENCOUNTER 2021-01-05 12:51 | Emergency (ER) | payer MEDICAID ==
[~2021-01-05] VITALS: Ht 177.8 cm; Wt 108.9 kg
[~2021-01-05 12:51] MED LIST changes: +CLINDAMYCIN HC300 MG ORAL
[2021-01-05 13:33] VITALS: BP 135/93
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
[2021-01-05] MEDS ORDERED: Tetanus/Diptheria/Pertussis IM ONE (14:15)
[2021-01-05] MEDS ORDERED: Methocarbamol 750mg tab ORAL ONE (14:15)
--- NOTE | 2021-01-05 14:56 | Diagnostic Imaging Report ---
FILM LEFT WRIST INDICATION: Left wrist pain COMPARISON: None FINDINGS: 3 views of the left wrist are obtained. Bony structures are intact. Bone mineralization and alignment are within normal limits. Joint spaces are preserved. Soft tissues are within normal limits. IMPRESSION: No acute fracture or dislocation identified.
--- NOTE | 2021-01-05 14:58 | Diagnostic Imaging Report ---
CT HEAD Without Contrast HISTORY: Pain TECHNIQUE: One or more of the following dose reduction techniques were used: automated exposure control, adjustment of the mA and/or kV according to patient size, use of iterative reconstruction technique. One or more of the following dose reduction techniques were used: automated exposure control, adjustment of the mA and/or kV according to patient size, use of iterative reconstruction technique. Total Exam volume computed tomography dose index (CTDIvol) = 53.4 mGy and Dose Length Product (DLP) = 1179.1 mGY-c TECHNIQUE: Multiple, contiguous 2.5 mm axial cuts of the brain are obtained from the posterior fossa to the cranial vault. Coronal reformatted images provided. No IV contrast is administered. COMPARISON: None FINDINGS: No intracranial hemorrhage, abnormal intra- or extra-axial collections or parenchymal lesions are seen. The shape and configuration of the cortical sulci, basal cisterns and ventricles are within normal limits. The edmonds-white differentiation is preserved. No evidence of mass effect, midline shift, or edema. The osseous structures are unremarkable. The visualized portions of the paranasal sinuses are clear. IMPRESSION: Normal non-contrast CT scan of the head.
--- NOTE | 2021-01-05 14:59 | Diagnostic Imaging Report ---
FILM RIGHT FOOT RIGHT FOOT, 3 views INDICATION: Right foot pain COMPARISON: None FINDINGS: 3 views of the right foot are obtained. Bony structures are intact. Bone mineralization is within normal limits. Joint spaces are preserved. Soft tissues within normal limits. No radio-opaque foreign bodies. IMPRESSION: No acute fracture or subluxation identified.
[2021-01-05] MEDS ORDERED: NAPROXEN500 M1 ORAL (15:08)
[2021-01-05] MEDS ORDERED: ROBAXIN-750750 MG PO (15:08)
--- NOTE | 2021-01-05 15:09 | Diagnostic Imaging Report ---
FILM RIGHT ANKLE INDICATION: Right ankle pain COMPARISON: None FINDINGS: 3 views of the right ankle are obtained. Bony structures are intact. Bone mineralization is within normal limits. Joint spaces are preserved. Soft tissues are within normal limits. No radio-opaque foreign bodies. Calcifications adjacent to the distal tibia and fibula which appear chronic. IMPRESSION: No acute fracture or subluxation identified.
== END 2021-01-05 15:20 | disposition home or self-care (01) ==
LOC: EMR 14:00
DX: S09.90XA Unspecified injury of head, initial encounter (principal); S60.512A Abrasion of left hand, initial encounter; S93.401A Sprain of unspecified ligament of right ankle, initial encounter; S06.0X9A Concussion with loss of consciousness of unspecified duration, initial encounter; V43.52XA Car driver injured in collision with other type car in traffic accident, initial encounter; Y92.410 Unspecified street and highway as the place of occurrence of the external cause; Z23 Encounter for immunization
CPT/HCPCS: 29125; 70450; 73110; 73610; 73630; 90471; 90715; Z7502; 99284